=== PATIENT | male | born 1995 | race Caucasian/White ===

== ENCOUNTER 2016-05-16 10:30 | Emergency (ER) | payer BC, OTHER | END 2016-05-16 14:10 | disposition home or self-care (01) | LOC: ER 10:30 | DX: M94.0 Chondrocostal junction syndrome [Tietze] (principal); K21.9 Gastro-esophageal reflux disease without esophagitis; J93.83 Other pneumothorax; F32.9 Major depressive disorder, single episode, unspecified; F41.9 Anxiety disorder, unspecified ==

== ENCOUNTER 2016-05-17 14:43 | Emergency (ER) | payer BC, OTHER | END 2016-05-17 15:42 | disposition home or self-care (01) | LOC: ER 14:43 | DX: J93.83 Other pneumothorax (principal); F32.9 Major depressive disorder, single episode, unspecified; F90.9 Attention-deficit hyperactivity disorder, unspecified type; Z88.1 Allergy status to other antibiotic agents; Z88.8 Allergy status to other drugs, medicaments and biological substances ==

== ENCOUNTER 2016-08-18 21:31 | Emergency (ER) | payer BC, OTHER | END 2016-08-19 00:08 | disposition home or self-care (01) | LOC: ER 21:31 | DX: K29.70 Gastritis, unspecified, without bleeding (principal); E86.0 Dehydration; K21.9 Gastro-esophageal reflux disease without esophagitis; F41.9 Anxiety disorder, unspecified; F90.9 Attention-deficit hyperactivity disorder, unspecified type; F32.9 Major depressive disorder, single episode, unspecified; Z98.890 Other specified postprocedural states; Z88.1 Allergy status to other antibiotic agents; Z88.7 Allergy status to serum and vaccine | CPT/HCPCS: 36415; 96361; 96374; 96375 ==